=== PATIENT | female | born 1995 | race Caucasian/White ===

== ENCOUNTER → 2016-09-03 11:10 | Outpatient (CLI) | payer MEDICAID ==
[2016-03-29 12:56] VITALS: BMI 21.0
[~2016-09-03 11:10] MED LIST: ANAPROX DS550 MG PO; MAXALT10 MG PO; PREVACID30 MG PO; PROZAC10 MG PO; PROZAC20 MG PO; SOMA350 MG PO; TOPAMAX50 MG PO; ULTRAM50 MG PO
== END | disposition home or self-care (01) ==
LOC: D.US 11:10
DX: N64.4 Mastodynia (principal)

== ENCOUNTER → 2016-12-14 12:20 | Outpatient (CLI) | payer MEDICAID ==
[2016-03-29 12:56] VITALS: BMI 21.0
== END | disposition home or self-care (01) ==
LOC: D.CT 12:20
DX: R31.9 Hematuria, unspecified (principal)

== ENCOUNTER → 2016-12-28 09:15 | Outpatient (CLI) | payer MEDICAID ==
[2016-03-29 12:56] VITALS: BMI 21.0
== END | disposition home or self-care (01) ==
LOC: D.LAB 09:15
DX: R76.11 Nonspecific reaction to tuberculin skin test without active tuberculosis (principal)

== ENCOUNTER → 2017-01-24 12:44 | Outpatient (CLI) | payer MEDICAID ==
[2016-03-29 12:56] VITALS: BMI 21.0
[~2017-01-24 12:44] MED LIST changes: +CARDIZEM30 MG PO; +CYCLOBENZAPRINE10 MG PO; +FLORINEF 0.1 M0.1 MG PO; -PROZAC10 MG PO; +PROZAC40 MG PO; +SKELAXIN800 MG PO
== END | disposition home or self-care (01) ==
LOC: D.LABREF 12:44
DX: R31.9 Hematuria, unspecified (principal)

== ENCOUNTER 2017-01-28 09:26 | Day surgery (SDC) | payer MEDICAID ==
[~2017-01-28] VITALS: Ht 162.6 cm; Wt 59.4 kg
[2017-01-28 10:54] VITALS: BP 104/68; Ht 162.6 cm; Wt 59.4 kg
[2017-01-28 10:59] LABS: HEMATOCRIT 42.7 % (36.0-48.0); HEMOGLOBIN 13.6 g/dL (12-16); MCH 29.4 pg (26.0-34.0); MCHC 31.9 g/dL (31.0-37.0); MCV 92.2 fL (80.0-100.0); RBC 4.63 10x6/uL (4.00-5.40); WBC 6.6 10x3/uL (4.8-10.8)
[2017-01-28 11:19] LABS: HCG URINE NEGATIVE (NEGATIVE)
--- NOTE | 2017-01-28 13:40 | NUR ---
1340 DISCHARGE INSTRUCTIONS GIVEN. NO PRESCRIPTIONS. ESCORTED OUT BY VOLUNTEER.
== END 2017-01-28 13:40 | disposition home or self-care (01) ==
LOC: D.OPS 09:26 → D.PAN 12:00 → D.OPS 12:00
PROVIDERS: Anesthesiology; Urology
DX: N30.11 Interstitial cystitis (chronic) with hematuria (principal); Z91.040 Latex allergy status; Z01.812 Encounter for preprocedural laboratory examination

== ENCOUNTER → 2017-02-13 20:28 | Outpatient (CLI) | payer MEDICAID ==
[2017-01-28 10:54] VITALS: BMI 22.5
[2017-02-13 21:20] LABS: APPEARANCE CLEAR (CLEAR); COLOR DK YELLOW (YELLOW)
[2017-02-13 21:21] LABS: BILIRUBIN NEGATIVE (NEGATIVE); GLUCOSE NEGATIVE (NEGATIVE); KETONE NEGATIVE (NEGATIVE); LEUKOCYTE ESTERASE NEGATIVE (NEGATIVE); NITRITE NEGATIVE (NEGATIVE); PROTEIN NEGATIVE (NEGATIVE); UROBILINOGEN NORMAL (NORMAL)
[2017-02-13 21:25] LABS: BACTERIA FEW /hpf (NONE SEEN); EPITHELIAL CELLS 0-5 /hpf (0-5); RED CELLS - URINE 0-5 /hpf (0-5); WHITE CELLS - URINE 0-5 /hpf (0-5)
== END | disposition home or self-care (01) ==
LOC: D.LABREF 20:28
PROVIDERS: Urology
DX: N39.0 Urinary tract infection, site not specified (principal)

== ENCOUNTER → 2017-11-07 16:53 | Outpatient (CLI) | payer MEDICAID ==
[2017-01-28 10:54] VITALS: BMI 22.5
[2017-11-07 18:12] LABS: BASOPHILS 0.2 % (0-2); EOSINOPHILS 0.7 % (0-7); HEMATOCRIT 44.2 % (36.0-48.0); HEMOGLOBIN 14.7 g/dL (12-16); IMMATURE GRANULOCYTES 0.2 % (0-5); LYMPHOCYTES 39.8 % (15-50); MCH 30.6 pg (26.0-34.0); MCHC 33.3 g/dL (31.0-37.0); MCV 91.9 fL (80.0-100.0); MEAN PLATELET VOLUME 11.5 fL (7.4-10.4); MONOCYTES 10.7 % (2-11); NEUTROPHILS 48.4 % (40-80); PLATELET COUNT 246 10x3/uL (130-400); RBC 4.81 10x6/uL (4.00-5.40); WBC 5.9 10x3/uL (4.8-10.8)
== END | disposition home or self-care (01) ==
LOC: D.LABREF 16:53
PROVIDERS: Internal Medicine Cardiovascular Disease
DX: R53.83 Other fatigue (principal)

== ENCOUNTER → 2017-12-23 15:12 | Outpatient (CLI) | payer MEDICAID ==
[2017-01-28 10:54] VITALS: BMI 22.5
== END | disposition home or self-care (01) ==
LOC: D.LAB 15:12
DX: R76.11 Nonspecific reaction to tuberculin skin test without active tuberculosis (principal)

== ENCOUNTER 2018-03-25 12:53 | Inpatient (IN) | payer MEDICAID ==
[~2018-03-25] VITALS: Ht 162.6 cm; Wt 62.6 kg
[2018-03-25 13:41] VITALS: BP 89/50; BMI 23.7
[2018-03-25 14:02] LABS: BASOPHILS 0.2 % (0-2); EOSINOPHILS 0 % (0-7); HEMATOCRIT 40.5 % (36.0-48.0); HEMOGLOBIN 13.4 g/dL (12-16); IMMATURE GRANULOCYTES 0.1 % (0-5); LYMPHOCYTES 12.7 % (15-50); MCH 30.5 pg (26.0-34.0); MCHC 33.1 g/dL (31.0-37.0); MEAN PLATELET VOLUME 10.9 fL (7.4-10.4); MONOCYTES 11.1 % (2-11); NEUTROPHILS 75.9 % (40-80); RDW 12.8 % (11.5-14.5); WBC 8.1 10x3/uL (4.8-10.8)
[2018-03-25 14:05] LABS: PLATELET COUNT 179 10x3/uL (130-400)
[2018-03-25 14:18] LABS: ALBUMIN 3.2 g/dL (3.4-5.0); ALKALINE PHOSPHATASE 73 U/L (46-116); ALT (SGPT) 36 U/L (10-68); BILIRUBIN - TOTAL 0.29 mg/dL (0.2-1.3); CALC OSMOLALITY 270 mosm/kg (275-300); CALCIUM 8.3 mg/dL (8.5-10.1); CARBON DIOXIDE 21.8 mmol/L (21.0-32.0); CHLORIDE - SERUM 102 mmol/L (98-107); CREATININE - SERUM 0.8 mg/dL (0.6-1.3); GLUCOSE 96 mg/dL (74-106); POTASSIUM - SERUM 4.1 mmol/L (3.5-5.1); PROTEIN - SERUM 7.5 g/dL (6.4-8.2); SODIUM 136 mmol/L (136-145); UREA NITROGEN 9 mg/dL (7-18); eGFR NON AFRICAN AMERICAN > 90 mL/min (90-120)
[2018-03-25 15:52] VITALS: BP 97/58
[2018-03-25 20:00] VITALS: BP 107/69
[2018-03-26 04:00] VITALS: BP 99/61
[2018-03-26 04:39] LABS: BASOPHILS 0.1 % (0-2); EOSINOPHILS 0.1 % (0-7); HEMATOCRIT 38.5 % (36.0-48.0); HEMOGLOBIN 12.7 g/dL (12-16); IMMATURE GRANULOCYTES 0.2 % (0-5); LYMPHOCYTES 13.7 % (15-50); MCH 30.2 pg (26.0-34.0); MCV 91.4 fL (80.0-100.0); MEAN PLATELET VOLUME 10.7 fL (7.4-10.4); MONOCYTES 13.7 % (2-11); NEUTROPHILS 72.2 % (40-80); PLATELET COUNT 194 10x3/uL (130-400); RBC 4.21 10x6/uL (4.00-5.40); RDW 12.9 % (11.5-14.5); WBC 8.8 10x3/uL (4.8-10.8)
[2018-03-26 05:08] LABS: ALBUMIN 2.9 g/dL (3.4-5.0); ALKALINE PHOSPHATASE 71 U/L (46-116); ALT (SGPT) 32 U/L (10-68); BILIRUBIN - TOTAL 0.36 mg/dL (0.2-1.3); CALC OSMOLALITY 269 mosm/kg (275-300); CALCIUM 8.1 mg/dL (8.5-10.1); CARBON DIOXIDE 22.5 mmol/L (21.0-32.0); CHLORIDE - SERUM 104 mmol/L (98-107); CREATININE - SERUM 0.7 mg/dL (0.6-1.3); GLUCOSE 97 mg/dL (74-106); POTASSIUM - SERUM 3.7 mmol/L (3.5-5.1); PROTEIN - SERUM 6.9 g/dL (6.4-8.2); SODIUM 136 mmol/L (136-145); UREA NITROGEN 8 mg/dL (7-18); eGFR NON AFRICAN AMERICAN > 90 mL/min (90-120)
[2018-03-26 05:20] LABS: MONO NEGATIVE (NEGATIVE)
[2018-03-26 07:55] VITALS: BP 108/64
[2018-03-26 11:28] VITALS: BP 114/70
[2018-03-26 15:14] LABS: APPEARANCE CLEAR (CLEAR); BILIRUBIN NEGATIVE (NEGATIVE); COLOR YELLOW (YELLOW); GLUCOSE NEGATIVE (NEGATIVE); KETONE NEGATIVE (NEGATIVE); NITRITE NEGATIVE (NEGATIVE); PROTEIN NEGATIVE (NEGATIVE); SPECIFIC GRAVITY 1.005 (1.005-1.020); UROBILINOGEN NORMAL (NORMAL)
[2018-03-26 15:15] LABS: BACTERIA FEW /hpf (NONE SEEN); EPITHELIAL CELLS 0-5 /hpf (0-5); RED CELLS - URINE 0-5 /hpf (0-5)
[2018-03-26 15:30] VITALS: BP 105/62
[2018-03-26 18:24] LABS: GLUCOSE - CSF 63 MG/DL (40-75); PROTEIN - CSF 24 MG/DL (12-60)
[2018-03-26 20:24] LABS: RBC - CSF 3 cmm (0-0)
[2018-03-26 20:38] VITALS: BP 97/62
[2018-03-26 20:39] LABS: APPEARANCE - CSF CLEAR
[2018-03-27] VITALS: BP 89/54
[2018-03-27 04:00] VITALS: BP 94/51
[2018-03-27 04:20] LABS: BASOPHILS 0 % (0-2); EOSINOPHILS 0.2 % (0-7); HEMATOCRIT 36.4 % (36.0-48.0); HEMOGLOBIN 11.7 g/dL (12-16); IMMATURE GRANULOCYTES 0.2 % (0-5); MCH 29.6 pg (26.0-34.0); MCHC 32.1 g/dL (31.0-37.0); MCV 92.2 fL (80.0-100.0); MEAN PLATELET VOLUME 10.5 fL (7.4-10.4); MONOCYTES 12.6 % (2-11); PLATELET COUNT 213 10x3/uL (130-400); RBC 3.95 10x6/uL (4.00-5.40); RDW 12.9 % (11.5-14.5)
[2018-03-27 04:29] LABS: WBC 6.2 10x3/uL (4.8-10.8)
[2018-03-27 04:34] LABS: CALC OSMOLALITY 270 mosm/kg (275-300); CALCIUM 8.1 mg/dL (8.5-10.1); CARBON DIOXIDE 20.9 mmol/L (21.0-32.0); CHLORIDE - SERUM 105 mmol/L (98-107); CREATININE - SERUM 0.8 mg/dL (0.6-1.3); GLUCOSE 104 mg/dL (74-106); POTASSIUM - SERUM 3.5 mmol/L (3.5-5.1); SODIUM 137 mmol/L (136-145); eGFR NON AFRICAN AMERICAN > 90 mL/min (90-120)
[2018-03-27 04:39] LABS: UREA NITROGEN 5 mg/dL (7-18)
[2018-03-27 06:00] VITALS: BP 97/56
[2018-03-27 13:17] LABS: CYTOMEGALOVIRUS AB IGG <0.60 U/mL (0.00-0.59)
[2018-03-27 13:56] VITALS: Ht 162.6 cm; Wt 62.6 kg
[2018-03-27 14:29] LABS: EBV - EARLY ANTIGEN AB IGG 27.2 U/mL (0.0-8.9); EBV - EARLY ANTIGEN AB IGG 29.3 U/mL (0.0-8.9); EBV - NUCLEAR ANTIGEN AB IGG 50.5 U/mL (0.0-17.9); EBV VIRAL CAPSID AB IGM <36.0 U/mL (0.0-35.9)
[2018-03-27 17:42] VITALS: BP 93/53
[2018-03-27 20:00] VITALS: BP 90/56
[2018-03-28] VITALS: BP 98/60
[2018-03-28 04:00] VITALS: BP 100/60
[2018-03-28 07:40] VITALS: BP 95/55
[2018-03-28] MEDS ORDERED: ONCOLOGY MOUTHWASH PO (14:24)
[2018-03-28] MEDS ORDERED: CLEOCIN HCL300 MG PO (14:25)
[2018-03-28] MEDS ORDERED: OMNICEF300 MG PO (14:25)
[2018-03-28 15:21] LABS: EHRLICHIA CHAFF IGG Negative (Neg:<1:64); EHRLICHIA CHAFF IGM Negative (Neg:<1:20); HGE IGG TITER Negative (Neg:<1:64)
[2018-03-29 12:15] LABS: CRYPTO AG - CSF Negative (Negative)
[2018-04-02 07:33] LABS: F. TULARENSIS - IGG Negative (())
[2018-04-02 09:19] LABS: F. TULARENSIS - IGM Negative (()); HGE IGM TITER Negative (Neg:<1:20); RMSF IGM 0.21 index (0.00-0.89)
[2018-04-02 15:28] LABS: ENTEROVIRUS RT-PCR Negative (Negative)
== END 2018-03-28 16:55 | disposition home or self-care (01) | DRG 872 ==
LOC: D.M2 12:53
PROVIDERS: Family Medicine; Student in an Organized Health Care Education/Training Program
PROC: 009U3ZZ Drainage of Spinal Canal, Percutaneous Approach (ICD-10-PCS; principal; 2018-03-26)
DX: A41.9 Sepsis, unspecified organism (principal); L02.01 Cutaneous abscess of face; L98.491 Non-pressure chronic ulcer of skin of other sites limited to breakdown of skin; R51 Headache; E86.0 Dehydration; Z91.040 Latex allergy status

== ENCOUNTER → 2019-01-27 11:41 | Outpatient (CLI) | payer BC ==
[2018-03-27 13:56] VITALS: BMI 23.7
[~2019-01-27 11:41] MED LIST changes: +CLEOCIN HCL300 MG PO; +OMNICEF300 MG PO; +ONCOLOGY MOUTHWASH PO
== END | disposition home or self-care (01) ==
LOC: D.LAB 11:41
PROVIDERS: ATTEND Family Medicine
DX: Z11.1 Encounter for screening for respiratory tuberculosis (principal)